=== PATIENT | male | born 1985 | race Caucasian/White ===

== ENCOUNTER 2016-12-02 16:04 | Emergency (ER) | payer SELFPAY ==
[~2016-12-02] VITALS: Ht 182.9 cm; Wt 113.6 kg
[~2016-12-02 16:04] MED LIST: EFFEXOR-XR150 MG PO; KLONOPIN2 MG PO; PRILOSEC 20MG20 MG PO; RISPERDAL4 MG PO
[2016-12-02 16:05] VITALS: TEMP 99.2
[2016-12-02 16:41] LABS: BASO # 0.1 (0.0-0.2); BASO % 0.7 % (0.0-2.0); EOS # 0.5 (0.0-0.7); EOS % 4.5 % (0-4.0); GRAN # 6.7 (1.4-6.5); GRAN % 63.3 % (42.2-75.2); HEMATOCRIT 47.3 % (42.0-52.0); HEMOGLOBIN 16.5 g/dl (13.5-18.0); LYMPH # 2.8 (1.2-3.4); LYMPH % 26.1 % (20.0-51.0); MEAN CELL VOLUME 92 fl (80.0-100.0); MEAN CORPUSCULAR HEMOGLOBIN 32 pg (27.0-31.0); MEAN CORPUSCULAR HGB CONC 35 g/dl (33.0-37.0); MEAN PLATELET VOLUME 10.6 fl (7.4-10.4); MONO # 0.5 (0.1-0.6); PLATELET COUNT 308 K/mm3 (130-400); RED BLOOD COUNT 5.15 M/mm3 (4.20-5.60); REDCELL DISTRIBUTION WIDTH-CV 12.5 % (11.5-14.5); WHITE BLOOD COUNT 10.5 K/mm3 (4.8-10.8)
[2016-12-02 16:59] LABS: ADJUSTED CALCIUM 9.7 mg/dL (8.4-10.2); ALANINE AMINOTRANSFERASE 65 U/L (21-72); ALBUMIN 4.5 gm/dL (3.5-5.0); ALKALINE PHOSPHATASE 79 U/L (50-136); ANION GAP 15 mmol/L (7-16); BILIRUBIN,TOTAL 0.9 mg/dL (0.0-1.0); BLOOD UREA NITROGEN 11 mg/dL (9-20); CALCIUM 10.1 mg/dL (8.4-10.2); CARBON DIOXIDE 22 mmol/L (22-30); CHLORIDE 104 mmol/L (98-107); CREATININE, serum 1.13 mg/dL (0.66-1.25); GLUCOSE 120 mg/dL (74-106); POTASSIUM 3.9 mmol/L (3.4-5.0); SODIUM 142 mmol/L (137-145); TOTAL PROTEIN 7.9 gm/dL (6.4-8.2)
[2016-12-02 17:01] LABS: ACETAMINOPHEN < 10 ug/mL (10-30); SALICYLATE < 1.0 mg/dL
[2016-12-02 17:07] LABS: AMPHETAMINE URINE NEGATIVE; BARBITURATES URINE NEGATIVE; BENZODIAZEPINES URINE NEGATIVE; BUPRENORPHINE URINE NEGATIVE; METHADONE URINE NEGATIVE; OPIATES URINE NEGATIVE; OXYCODONE URINE NEGATIVE; PHENCYCLIDINE URINE NEGATIVE; PROPOXYPHENE URINE NEGATIVE; THC CANNABINOIDS URINE NEGATIVE
[2016-12-03 05:44] VITALS: BP 128/82; PULSE 97
== END 2016-12-03 05:49 ==
LOC: COL.ER 16:04
PROVIDERS: Physician Assistant
DX: F32.9 Major depressive disorder, single episode, unspecified (principal); R45.851 Suicidal ideations

== ENCOUNTER 2018-11-10 05:33 | Emergency (ER) | payer BC ==
[~2018-11-10] VITALS: Ht 182.9 cm; Wt 109.1 kg
[2018-11-10 05:40] VITALS: BP 145/98
[2018-11-10] MEDS ORDERED: XANAX 0.5MG0.5 MG PO (06:19)
[2018-11-10] MEDS ORDERED: SEROQUEL50 MG PO (06:19)
[2018-11-10] MEDS ORDERED: TESSALON P100 MG/CAP PO (07:17)
[2018-11-10 07:59] VITALS: PULSE 83; TEMP 97
== END 2018-11-10 07:59 | disposition home or self-care (01) ==
LOC: COL.ER 05:33
DX: R05 Cough (principal); F31.9 Bipolar disorder, unspecified; K21.9 Gastro-esophageal reflux disease without esophagitis; F17.210 Nicotine dependence, cigarettes, uncomplicated

== ENCOUNTER 2020-01-14 18:46 | Emergency (ER) | payer SELFPAY ==
[~2020-01-14] VITALS: Ht 182.9 cm; Wt 113.6 kg
[~2020-01-14 18:46] MED LIST changes: +SEROQUEL50 MG PO; +TESSALON P100 MG/CAP PO; +XANAX 0.5MG0.5 MG PO
[2020-01-14 19:05] VITALS: TEMP 97.9
[2020-01-14 21:21] VITALS: BP 110/70; PULSE 92
== END 2020-01-14 21:21 | disposition home or self-care (01) ==
LOC: COL.ER 18:46
DX: K04.7 Periapical abscess without sinus (principal); K02.9 Dental caries, unspecified; F32.9 Major depressive disorder, single episode, unspecified; F41.0 Panic disorder [episodic paroxysmal anxiety]; F17.210 Nicotine dependence, cigarettes, uncomplicated

== ENCOUNTER 2020-12-03 20:36 | Emergency (ER) | payer SELFPAY ==
[~2020-12-03] VITALS: Ht 182.9 cm; Wt 106.8 kg
[2020-12-03] MEDS ORDERED: ZYLOPRIM 100MG100 MG PO (20:52)
[2020-12-03] MEDS ORDERED: IBU800 M1 PO (20:54)
[2020-12-03] MEDS ORDERED: MOTRIN 600600 MG/TAB PO (20:54)
[2020-12-03] MEDS ORDERED: AMOXICILLIN 50500 MG PO (20:55)
[2020-12-03] MEDS ORDERED: ALEVE 220MG220 MG PO (20:55)
[2020-12-03] MEDS ORDERED: DESYREL 100MG100 MG PO (20:56)
[2020-12-03] MEDS ORDERED: NORCO 325 MG-51 TAB PO (20:56)
[2020-12-03 21:21] VITALS: BP 118/69; PULSE 111; TEMP 98.2
== END 2020-12-03 21:22 | disposition home or self-care (01) ==
LOC: COL.ER 20:36
DX: M27.3 Alveolitis of jaws (principal); F17.210 Nicotine dependence, cigarettes, uncomplicated; Z88.8 Allergy status to other drugs, medicaments and biological substances